=== PATIENT | male | born 1970 | race Caucasian/White ===

== ENCOUNTER 2016-07-22 13:48 | Inpatient (IN) | payer BC ==
[~2016-07-22] VITALS: Ht 180.3 cm; Wt 107.6 kg
[~2016-07-22 13:48] MED LIST: LIPITOR 10MG10 MG PO
[2016-07-22 22:49] VITALS: BP 114/77; PULSE 86; TEMP 99.3
[2016-07-22] MEDS ORDERED: PRAVACHOL 40MG40 MG PO (23:20)
[2016-07-22] MEDS ORDERED: MOTRIN 200200 MG/TAB PO (23:23)
[2016-07-23] MEDS ORDERED: NEURONTIN300 MG/CAP PO (01:03)
[2016-07-23] MEDS ORDERED: FLEXERIL 1010 MG/TAB PO (01:04)
[2016-07-23] MEDS ORDERED: VANCOCIN HCL1 GM IV (01:06)
[2016-07-23] MEDS ORDERED: CEFTRIAXON2 GM/50 ML IV (01:08)
[2016-07-23] MEDS ORDERED: MIRALAX PA17 GM/Dose PO (01:09)
[2016-07-23] MEDS ORDERED: SENOKOT S 50 MG1 TAB PO (01:09)
[2016-07-23] MEDS ORDERED: PERCOCET 325 MG1 TA2 PO (01:10)
[2016-07-23] MEDS ORDERED: LOVENOX 4040 MG/0.4 SQ (01:11)
[2016-07-23 04:40] VITALS: BP 97/40; PULSE 52; TEMP 98.4
[2016-07-23 16:37] VITALS: BP 128/74; PULSE 108; TEMP 99.1
[2016-07-24 05:11] VITALS: BP 112/73; PULSE 82; TEMP 98.3
[2016-07-24 16:41] VITALS: BP 129/76; PULSE 110; TEMP 97.5
[2016-07-25 04:23] VITALS: BP 107/71; PULSE 79; TEMP 98.4
[2016-07-25 16:30] VITALS: BP 110/63; PULSE 100; TEMP 97.7
[2016-07-26 04:38] VITALS: BP 137/79; PULSE 101; TEMP 97.6
[2016-07-26 07:01] LABS: BASO # 0.1 (0.0-0.2); BASO % 0.8 % (0.0-2.0); EOS # 0.3 (0.0-0.7); EOS % 3.2 % (0-4.0); GRAN # 6.1 (1.4-6.5); GRAN % 69.1 % (42.2-75.2); HEMATOCRIT 39.3 % (42.0-52.0); HEMOGLOBIN 13.2 g/dl (13.5-18.0); LYMPH # 1.4 (1.2-3.4); MEAN CELL VOLUME 90 fl (80.0-100.0); MEAN CORPUSCULAR HEMOGLOBIN 30 pg (27.0-31.0); MEAN CORPUSCULAR HGB CONC 34 g/dl (33.0-37.0); MEAN PLATELET VOLUME 9.7 fl (7.4-10.4); MONO # 0.9 (0.1-0.6); MONO % 9.9 % (1.7-9.3); PLATELET COUNT 204 K/mm3 (130-400); RED BLOOD COUNT 4.37 M/mm3 (4.20-5.60); REDCELL DISTRIBUTION WIDTH-CV 11.9 % (11.5-14.5); WHITE BLOOD COUNT 8.9 K/mm3 (4.8-10.8)
[2016-07-26 07:22] LABS: CALCIUM 9.6 mg/dL (8.4-10.2); CREATININE, serum 0.74 mg/dL (0.66-1.25); POTASSIUM 4.1 mmol/L (3.4-5.0)
[2016-07-26 16:34] VITALS: BP 119/67; PULSE 104; TEMP 98.6
[2016-07-27 06:10] VITALS: BP 116/54; PULSE 70; TEMP 97.7
[2016-07-27] MEDS ORDERED: FLEXERIL 1010 MG/TAB PO (10:32)
[2016-07-27] MEDS ORDERED: TYLENOL 325MG325 MG PO (10:32)
[2016-07-27] MEDS ORDERED: NEURONTIN300 MG/CAP PO (10:33)
[2016-07-27] MEDS ORDERED: PERCOCET 325 MG1 TA2 PO (10:34)
[2016-07-27 16:12] VITALS: BP 114/72; PULSE 112; TEMP 98.4
== END 2016-07-27 17:42 | disposition home health service (06) | DRG 948 ==
PROVIDERS: Family Medicine
DX: R53.81 Other malaise (principal); M46.47 Discitis, unspecified, lumbosacral region; T81.4XXD Infection following a procedure, subsequent encounter
CPT/HCPCS: 99222-AI; 99232-AI; 99239; J0696; J1644; J1650; J3370; J7050

== ENCOUNTER 2016-09-16 08:00 | Outpatient (RCR) | payer BC ==
[2016-07-28 08:49] VITALS: BP 123/79; PULSE 106; TEMP 97.8
[2016-07-28 09:02] LABS: BASO # 0.1 (0.0-0.2); BASO % 0.7 % (0.0-2.0); EOS # 0.2 (0.0-0.7); EOS % 2.4 % (0-4.0); GRAN # 6.7 (1.4-6.5); HEMATOCRIT 45.1 % (42.0-52.0); LYMPH # 1.2 (1.2-3.4); LYMPH % 13.1 % (20.0-51.0); MEAN CELL VOLUME 89 fl (80.0-100.0); MEAN CORPUSCULAR HEMOGLOBIN 30 pg (27.0-31.0); MEAN CORPUSCULAR HGB CONC 33 g/dl (33.0-37.0); MONO # 0.9 (0.1-0.6); MONO % 9.6 % (1.7-9.3); PLATELET COUNT 216 K/mm3 (130-400); RED BLOOD COUNT 5.06 M/mm3 (4.20-5.60); REDCELL DISTRIBUTION WIDTH-CV 11.9 % (11.5-14.5); WHITE BLOOD COUNT 9.2 K/mm3 (4.8-10.8)
[2016-07-28 09:17] LABS: ADJUSTED CALCIUM 9.4 mg/dL (8.4-10.2); BILIRUBIN,TOTAL 0.9 mg/dL (0.0-1.0); C-REACTIVE PROTEIN 3.4 mg/dL (0.0-0.9); CALCIUM 9.4 mg/dL (8.4-10.2); CREATININE, serum 0.68 mg/dL (0.66-1.25); POTASSIUM 4.2 mmol/L (3.4-5.0); TOTAL PROTEIN 7.4 gm/dL (6.4-8.2)
[2016-07-28 17:30] VITALS: BP 120/87; PULSE 105; TEMP 97.8
[2016-08-02 10:19] LABS: HEMATOCRIT 41.1 % (42.0-52.0); HEMOGLOBIN 13.9 g/dl (13.5-18.0); MEAN CELL VOLUME 87 fl (80.0-100.0); MEAN CORPUSCULAR HEMOGLOBIN 30 pg (27.0-31.0); MEAN CORPUSCULAR HGB CONC 34 g/dl (33.0-37.0); MEAN PLATELET VOLUME 9.5 fl (7.4-10.4); PLATELET COUNT 249 K/mm3 (130-400); REDCELL DISTRIBUTION WIDTH-CV 11.7 % (11.5-14.5); WHITE BLOOD COUNT 7.6 K/mm3 (4.8-10.8)
[2016-08-02 10:21] VITALS: BP 122/73; PULSE 106; TEMP 97.6
[2016-08-02 10:32] LABS: ADJUSTED CALCIUM 9.7 mg/dL (8.4-10.2); ALBUMIN 3.4 gm/dL (3.5-5.0); BILIRUBIN,TOTAL 0.6 mg/dL (0.0-1.0); C-REACTIVE PROTEIN 2.8 mg/dL (0.0-0.9); CALCIUM 9.2 mg/dL (8.4-10.2); CREATININE, serum 0.76 mg/dL (0.66-1.25); POTASSIUM 3.9 mmol/L (3.4-5.0)
[2016-08-09 08:09] LABS: HEMATOCRIT 42.3 % (42.0-52.0); HEMOGLOBIN 14.6 g/dl (13.5-18.0); MEAN CELL VOLUME 86 fl (80.0-100.0); MEAN CORPUSCULAR HEMOGLOBIN 30 pg (27.0-31.0); MEAN CORPUSCULAR HGB CONC 35 g/dl (33.0-37.0); MEAN PLATELET VOLUME 9.5 fl (7.4-10.4); PLATELET COUNT 224 K/mm3 (130-400); RED BLOOD COUNT 4.92 M/mm3 (4.20-5.60); REDCELL DISTRIBUTION WIDTH-CV 11.7 % (11.5-14.5); WHITE BLOOD COUNT 6.4 K/mm3 (4.8-10.8)
[2016-08-09 08:15] VITALS: BP 121/86; PULSE 89; TEMP 97.7
[2016-08-09 08:21] LABS: ADJUSTED CALCIUM 9.5 mg/dL (8.4-10.2); ALBUMIN 3.8 gm/dL (3.5-5.0); BILIRUBIN,TOTAL 0.7 mg/dL (0.0-1.0); C-REACTIVE PROTEIN 2.1 mg/dL (0.0-0.9); CALCIUM 9.3 mg/dL (8.4-10.2); CREATININE, serum 0.71 mg/dL (0.66-1.25); TOTAL PROTEIN 6.9 gm/dL (6.4-8.2)
[2016-08-09 08:45] LABS: VANCOMYCIN TROUGH 22.44 ug/mL (7.00-20.00)
[2016-08-16 08:05] VITALS: BP 113/75; PULSE 92; TEMP 97.6
[2016-08-16 08:15] LABS: HEMATOCRIT 40.9 % (42.0-52.0); HEMOGLOBIN 13.7 g/dl (13.5-18.0); MEAN CELL VOLUME 86 fl (80.0-100.0); MEAN CORPUSCULAR HEMOGLOBIN 29 pg (27.0-31.0); MEAN CORPUSCULAR HGB CONC 34 g/dl (33.0-37.0); MEAN PLATELET VOLUME 9.8 fl (7.4-10.4); PLATELET COUNT 173 K/mm3 (130-400); RED BLOOD COUNT 4.76 M/mm3 (4.20-5.60); REDCELL DISTRIBUTION WIDTH-CV 11.4 % (11.5-14.5); WHITE BLOOD COUNT 6.7 K/mm3 (4.8-10.8)
[2016-08-16 08:29] LABS: ADJUSTED CALCIUM 9.4 mg/dL (8.4-10.2); ALBUMIN 3.7 gm/dL (3.5-5.0); BILIRUBIN,TOTAL 0.6 mg/dL (0.0-1.0); C-REACTIVE PROTEIN 2.6 mg/dL (0.0-0.9); CALCIUM 9.2 mg/dL (8.4-10.2); CREATININE, serum 0.78 mg/dL (0.66-1.25); POTASSIUM 4.1 mmol/L (3.4-5.0); TOTAL PROTEIN 6.1 gm/dL (6.4-8.2)
[2016-08-16 08:51] LABS: VANCOMYCIN TROUGH 21.79 ug/mL (7.00-20.00)
[2016-08-19 08:04] VITALS: BP 114/67; PULSE 107; TEMP 98.1
[2016-08-19 08:41] LABS: CALCIUM 9.1 mg/dL (8.4-10.2); CREATININE, serum 0.76 mg/dL (0.66-1.25); POTASSIUM 4.1 mmol/L (3.4-5.0)
[2016-08-23 08:17] VITALS: BP 140/97; PULSE 65; TEMP 97.5
[2016-08-23 08:33] LABS: CALCIUM 8.8 mg/dL (8.4-10.2); CREATININE, serum 0.74 mg/dL (0.66-1.25); POTASSIUM 3.7 mmol/L (3.4-5.0)
[2016-08-23 08:53] LABS: VANCOMYCIN TROUGH 24.26 ug/mL (7.00-20.00)
[2016-08-26 07:38] VITALS: BP 115/79; PULSE 102; TEMP 97.5
[2016-08-26 08:15] LABS: CALCIUM 9.3 mg/dL (8.4-10.2); CREATININE, serum 0.73 mg/dL (0.66-1.25); POTASSIUM 3.8 mmol/L (3.4-5.0)
[2016-08-26 08:27] LABS: VANCOMYCIN TROUGH 9.75 ug/mL (7.00-20.00)
[2016-08-30 07:26] VITALS: BP 119/79; PULSE 109; TEMP 97.3
[2016-08-30 07:59] LABS: HEMOGLOBIN 15.2 g/dl (13.5-18.0); MEAN CELL VOLUME 86 fl (80.0-100.0); MEAN CORPUSCULAR HEMOGLOBIN 29 pg (27.0-31.0); MEAN CORPUSCULAR HGB CONC 34 g/dl (33.0-37.0); MEAN PLATELET VOLUME 9.7 fl (7.4-10.4); PLATELET COUNT 198 K/mm3 (130-400); RED BLOOD COUNT 5.25 M/mm3 (4.20-5.60); WHITE BLOOD COUNT 7.4 K/mm3 (4.8-10.8)
[2016-08-30 08:03] LABS: ADJUSTED CALCIUM 9.3 mg/dL (8.4-10.2); ALBUMIN 4.1 gm/dL (3.5-5.0); BILIRUBIN,TOTAL 0.5 mg/dL (0.0-1.0); C-REACTIVE PROTEIN 1.7 mg/dL (0.0-0.9); CALCIUM 9.4 mg/dL (8.4-10.2); CREATININE, serum 0.71 mg/dL (0.66-1.25); TOTAL PROTEIN 6.3 gm/dL (6.4-8.2)
[2016-08-30 08:05] LABS: VANCOMYCIN TROUGH 17.32 ug/mL (7.00-20.00)
[2016-09-06 08:09] VITALS: BP 120/80; PULSE 87; TEMP 98.2
[2016-09-06 08:25] LABS: BASO # 0.1 (0.0-0.2); BASO % 0.9 % (0.0-2.0); EOS # 0.2 (0.0-0.7); GRAN % 63.1 % (42.2-75.2); HEMATOCRIT 42.3 % (42.0-52.0); HEMOGLOBIN 14.3 g/dl (13.5-18.0); LYMPH # 1.4 (1.2-3.4); LYMPH % 21.4 % (20.0-51.0); MEAN CELL VOLUME 86 fl (80.0-100.0); MEAN CORPUSCULAR HEMOGLOBIN 29 pg (27.0-31.0); MEAN CORPUSCULAR HGB CONC 34 g/dl (33.0-37.0); MEAN PLATELET VOLUME 9.9 fl (7.4-10.4); MONO # 0.7 (0.1-0.6); MONO % 11.1 % (1.7-9.3); PLATELET COUNT 200 K/mm3 (130-400); RED BLOOD COUNT 4.93 M/mm3 (4.20-5.60); REDCELL DISTRIBUTION WIDTH-CV 12.2 % (11.5-14.5); WHITE BLOOD COUNT 6.4 K/mm3 (4.8-10.8)
[2016-09-06 08:39] LABS: ADJUSTED CALCIUM 9.2 mg/dL (8.4-10.2); ALBUMIN 3.9 gm/dL (3.5-5.0); BILIRUBIN,TOTAL 0.6 mg/dL (0.0-1.0); C-REACTIVE PROTEIN 1.6 mg/dL (0.0-0.9); CALCIUM 9.1 mg/dL (8.4-10.2); CREATININE, serum 0.7 mg/dL (0.66-1.25); POTASSIUM 3.9 mmol/L (3.4-5.0); TOTAL PROTEIN 6.5 gm/dL (6.4-8.2)
[2016-09-13 07:32] VITALS: BP 119/73; PULSE 98; TEMP 97.9
[2016-09-13 08:09] LABS: ADJUSTED CALCIUM 9.3 mg/dL (8.4-10.2); ALBUMIN 4.1 gm/dL (3.5-5.0); BILIRUBIN,TOTAL 0.8 mg/dL (0.0-1.0); CALCIUM 9.4 mg/dL (8.4-10.2); CREATININE, serum 0.73 mg/dL (0.66-1.25); POTASSIUM 3.7 mmol/L (3.4-5.0); TOTAL PROTEIN 6.6 gm/dL (6.4-8.2)
[2016-09-13 08:11] LABS: HEMATOCRIT 44.7 % (42.0-52.0); HEMOGLOBIN 15.3 g/dl (13.5-18.0); MEAN CELL VOLUME 85 fl (80.0-100.0); MEAN CORPUSCULAR HEMOGLOBIN 29 pg (27.0-31.0); MEAN CORPUSCULAR HGB CONC 34 g/dl (33.0-37.0); MEAN PLATELET VOLUME 9.9 fl (7.4-10.4); PLATELET COUNT 206 K/mm3 (130-400); RED BLOOD COUNT 5.29 M/mm3 (4.20-5.60); REDCELL DISTRIBUTION WIDTH-CV 12.3 % (11.5-14.5); WHITE BLOOD COUNT 8.7 K/mm3 (4.8-10.8)
[2016-09-13 08:17] LABS: VANCOMYCIN TROUGH 17.61 ug/mL (7.00-20.00)
[2016-09-13 09:15] LABS: ERYTHROCYTE SEDIMENTATION RATE 2 mm/hr (0-15)
[~2016-09-16] VITALS: Ht 180.3 cm; Wt 108.8 kg
[~2016-09-16 08:00] MED LIST changes: +CEFTRIAXON2 GM/50 ML IV; +FLEXERIL 1010 MG/TAB PO; +LOVENOX 4040 MG/0.4 SQ; +MIRALAX PA17 GM/Dose PO; +MOTRIN 200200 MG/TAB PO; +NEURONTIN300 MG/CAP PO; +PERCOCET 325 MG1 TA2 PO; +PRAVACHOL 40MG40 MG PO; +SENOKOT S 50 MG1 TAB PO; +TYLENOL 325MG325 MG PO; +VANCOCIN HCL1 GM IV
[2016-09-16 08:05] VITALS: BP 125/78; PULSE 92; TEMP 97.7
== END 2016-09-16 08:32 | disposition home or self-care (01) ==
LOC: EUO 08:00
PROVIDERS: Family Medicine; Internal Medicine
DX: M46.46 Discitis, unspecified, lumbar region (principal); Z98.890 Other specified postprocedural states; Z79.2 Long term (current) use of antibiotics; Z45.2 Encounter for adjustment and management of vascular access device
CPT/HCPCS: J0696; J1644; J3370; J7050

== ENCOUNTER 2016-10-28 12:15 | Outpatient (RCR) | payer BC | END 2016-11-08 | disposition home or self-care (01) | LOC: MKS.ESL.PT | DX: T81.4XXD Infection following a procedure, subsequent encounter (principal); Z98.1 Arthrodesis status; M54.5 Low back pain ==

== ENCOUNTER 2016-12-28 12:15 | Outpatient (RCR) | payer BC | END 2016-12-29 09:18 | LOC: MKS.ESL.PT 12:15 | DX: Z98.890 Other specified postprocedural states (principal) ==

== ENCOUNTER → 2020-01-28 | Outpatient (CLI) | payer BC | LOC: ZCOL.LAB 17:33 | DX: R51 Headache (principal); Z20.828 Contact with and (suspected) exposure to other viral communicable diseases ==

== ENCOUNTER 2021-12-11 08:00 | Outpatient (RCR) | payer BC | END 2021-12-13 | disposition home or self-care (01) | LOC: MKS.ESL.PT | DX: S82.861D Displaced Maisonneuve's fracture of right leg, subsequent encounter for closed fracture with routine healing (principal); S93.431D Sprain of tibiofibular ligament of right ankle, subsequent encounter; X58.XXXD Exposure to other specified factors, subsequent encounter ==

== ENCOUNTER 2022-01-12 11:00 | Outpatient (RCR) | payer BC | END 2022-01-13 | disposition home or self-care (01) | LOC: MKS.ESL.PT | DX: S82.861D Displaced Maisonneuve's fracture of right leg, subsequent encounter for closed fracture with routine healing (principal); S93.431D Sprain of tibiofibular ligament of right ankle, subsequent encounter ==

== ENCOUNTER 2023-09-15 09:02 | Day surgery (SDC) | payer BC ==
[~2023-09-15] VITALS: Ht 172.7 cm; Wt 116.2 kg
[~2023-09-15 09:02] MED LIST changes: +LR 1,000 ML IV SCH; +Ondansetron 4 MG/2 ML VIAL IV PRN
[2023-09-15] MEDS ORDERED: CRESTOR 10MG10 MG PO (09:26)
[2023-09-15] MEDS ORDERED: fentaNYL 50 MCG/ML 2 ML VIAL ONE (10:47)
[2023-09-15] MEDS ORDERED: Lidocaine PF 2% (20 MG/ML) 5 ML VIAL ONE ×2 (10:47→11:27)
[2023-09-15 11:04] VITALS: BP 108/66; PULSE 71; TEMP 97.2
[2023-09-15 11:40] VITALS: BP 118/73; PULSE 70; TEMP 97.1
[2023-09-15 11:55] VITALS: BP 115/79; PULSE 70
--- NOTE | 2023-09-15 12:10 | NUR ---
1140 RETURNS TO ROOM 5 PER CART, AWAKE, ALERT. RESP UNLABORED. AMBULATES TO RECLINER WITH STANDBY ASSIST. DENIES NAUSEA OR ABD PAIN. VITAL SIGNS OBTAINED. CALL LIGHT AT SIDE. DAUGHTER IN ROOM. 1143 DR. GHOSH HERE TO VISIT WITH PATIENT. 1155 TOL[place] PO SODA WITHOUT NAUSEA 1157 DISCHARGE INSTRUCTIONS REVIEWED. PATIENT VERBALIZES UNDERSTANDING. COPY PROVIDED IN DISCHARGE FOLDER 1205 DRESSES SELF
== END 2023-09-15 12:12 | disposition home or self-care (01) ==
LOC: SDCO 09:02
DX: Z12.11 Encounter for screening for malignant neoplasm of colon (principal); K63.5 Polyp of colon; K57.30 Diverticulosis of large intestine without perforation or abscess without bleeding; G47.33 Obstructive sleep apnea (adult) (pediatric); E78.5 Hyperlipidemia, unspecified; E66.01 Morbid (severe) obesity due to excess calories; Z68.37 Body mass index [BMI] 37.0-37.9, adult; Z79.899 Other long term (current) drug therapy
CPT/HCPCS: J2704; J3010; J7120